=== PATIENT | female | born 1985 | race Caucasian/White ===

== ENCOUNTER 2016-11-28 21:42 | Emergency (ER) | payer OTHER ==
[~2016-11-28] VITALS: Ht 165.1 cm; Wt 99.0 kg
[2016-11-28 21:45] VITALS: BP 120/81; PULSE 76; RESP 16; O2SAT 99
--- NOTE | 2016-11-28 22:42 | ED.REPORT ---
HPI-Extremity Problem Upper Date of Service Nov 28, 2016 ED Provider: Leonard Mascorro MD Patient is a 31 year old female who presents to the ED complaining of left wrist pain onset yesterday. Associated symptoms include swelling of the wrist. The patient reports that she was carrying a tray through door and her wrist bent back too far. She states that the swelling has increased today and the pain is exacerbated by range of movement. The patient also complains of numbness in her fingers on both hands but reports that this has been going on for awhile. Nursing Notes Stated Complaint: HURT WRIST Chief Complaint: Extremity Trauma Nursing Notes Reviewed: Yes Allergies: Coded Allergies: No Known Allergies (Unverified , 11/28/16) Scheduled Famotidine (Pepcid) 20 Mg Tablet 20 MG PO BID Scheduled PRN Naproxen (Naprosyn) 500 Mg Tablet 500 MG PO BID PRN PRN For Pain General Time Seen by MD: 22:41 Chief Complaint Wrist injury left Hx Obtained From: Patient Arrived By: Walk-in Onset Occurred: Yesterday Symptom Duration: Since onset Location: : Wrist left Quality: Painful Severity: Current: Moderate Exacerbated by: Range of motion Similar Sx Previous: No Past Medical History Past Medical History none reported Smoking History Unknown if Ever Smoker Social History Other Social History: Good social support Ambulatory Status Independent Review of Systems Constitutional: Denies: Chills, Fever Musculoskeletal: Reports: Extremity pain (left wrist), Extremity swelling Skin: Denies Itching, Denies Rash Neurologic: Reports: Numbness (not a new symptom), Denies: Weakness Complete sys rev & neg: except as marked. Respiratory: Denies: Non-productive cough, Shortness of breath Physical Exam Initial Vital Signs Vital Signs (First) Date Time Temp Pulse Resp B/P Pulse Ox O2 Delivery O2 Flow Rate FiO2 11/28/16 21:45 37.0 76 16 120/81 99 Room Air Initial VS: Reviewed General/Constitutional: Awake, Alert, No acute distress Neck: Atraumatic, Full range of motion Respiratory / Chest: Atraumatic, No respiratory distress Wrist / Hand: Atraumatic, Neurologic intact, Vascular intact Left Wrist: Positive: Swelling present... (Mild), Tenderness present... (Mild) Skin: Atraumatic, Color NL, No rash, Warm, Dry Neurologic: Oriented X3, Speech NL, No motor deficits, No sensory deficits Head / Eyes: Atraumatic, Normocephalic, PERRL, EOMI Lower Extremity / Pelvis / MS: Atraumatic, Full range of motion Psychiatric: Affect NL, Mood NL Interpretation & Diagnostics X-Ray Interpretation Xray Interpretation: No evidence of fracture X-Ray Ordered: Wrist left Interpretation / Wet Read by: Wet read ED physician Procedures Splint Application - Fx Mgt Time: 23:06 Procedure Performed by: Director Of Managed Care Precise Anatomic Location: left wrist Type of Immobilization: Sugar tong Definitive Fracture Care: Pain control Post-Procedure / Complications: Cap refill normal, Post splint vascular nl, Post splint neuro nl, Tolerated procedure well, Patient stable Re-Eval/Medical Decision Med Decision/Clinical Course 31-year-old presents with a hyperextension injury to the left wrist, carrying a tray of slice watermelon. No fracture identified. No neurological or tendon injury identified. Home in wrist splint with spica immobilization. She incidentally has carpal tunnel syndrome worse on the right but has no splint. A similar spica splint was provided for nighttime use for chronic carpal tunnel. Re-Evaluation/Progress : Time of Eval: 22:51 Re-Evaluation/Progress Note: Discussed X-ray results and plan for discharge. Patient understands and agrees to plan. All questions were addressed. Counseled Regarding: Diagnosis, Lab results, Need for follow-up, When/why to return to ED Discharge & Departure Impression: Primary Impression: Left wrist sprain Encounter type: initial encounter Qualified Code: S63.502A - Unspecified sprain of left wrist, initial encounter Additional Impression: Carpal tunnel syndrome on both sides Disposition: Home Discharge Condition All VS Reviewed: Yes Condition: Stable Patient Instructions: Ankle Sprain (ED), Carpal Tunnel Syndrome (ED) Additional Instructions: Wear your left splint full-time for a week, and then to sleep for the indefinite future. Wear the right splint to sleep indefinitely. Naprosyn twice daily for pain. Take Pepcid twice daily as long as you are on Naprosyn. Ice frequently over the first twenty-four hours. Elevate whenever possible to reduce swelling. Follow up with your doctor in the office. Follow-up with residency clinic if needed. Follow-up in orthopedic clinic if needed for the wrist. Referrals: [facility] Residency Clinic [facility] Scribe Attestation Portions of this note were transcribed by Tracey Mcfadden. I, Dr. Mascorro personally performed the history, physical exam and medical decision-making; I reviewed and confirmed the accuracy of the information in the transcribed note. Signed by: Marisol Erickson, 11/28/16 and [id number] Leonard Mascorro MD Nov 28, 2016 22:42 Jocelyn Mcfadden Nov 28, 2016 22:48
[2016-11-28] MEDS ORDERED: NAPR500T PO (22:51)
[2016-11-28] MEDS ORDERED: FAMO20T PO (22:51)
--- NOTE | 2016-11-29 08:18 | DRSVH ---
PROCEDURE: X-RAY LEFT WRIST COMPLETE, MINIMUM THREE VIEWS ([id number]) INDICATIONS: Pain wrist TECHNIQUE: 4 views of the wrist were acquired. COMPARISON: None. FINDINGS: Bones: No fractures or dislocations. No suspicious bony lesions. Scaphoid view: The scaphoid is intact. Soft tissues: No suspicious soft tissue calcifications. IMPRESSION: No acute radiographic findings. If pain persists, followup imaging in 5-7 days is recomm ended to exclude occult fracture. Dictated by: Ary Mclain M.D. on 11/29/2016 at 8:13 Approved by: Ary Mclain M.D. on 11/29/2016 at 8:16
== END 2016-11-28 23:09 | disposition home or self-care (01) ==
LOC: SED 21:42
DX: S63.592A Other specified sprain of left wrist, initial encounter (principal); X50.9XXA Other and unspecified overexertion or strenuous movements or postures, initial encounter; Y93.89 Activity, other specified; Y92.019 Unspecified place in single-family (private) house as the place of occurrence of the external cause; Y99.8 Other external cause status; G56.03 Carpal tunnel syndrome, bilateral upper limbs
CPT/HCPCS: 29125; 73110; 96372; 99284; J1885